=== PATIENT | male | born 1950 | race Caucasian/White ===

== ENCOUNTER 2019-10-09 15:15 | Emergency (ER) | payer MEDICARE ==
[2019-10-09 15:49] LABS: ABSOLUTE NEUTROPHIL COUNT 1.64; BASO % 0.9 % (0-6); EOS % 3.4 % (0-6); GRAN % 51.5 % (47-80); HEMATOCRIT 44.9 % (42.0-52.0); HEMOGLOBIN 14.7 gm/dl (14.0-18.0); MEAN CELL VOLUME 94.3 fl (81-97); MEAN CORPUSCULAR HEMOGLOBIN 30.9 pg (27-33); MEAN CORPUSCULAR HGB CONC 32.7 g/dl (32-36); MEAN PLATELET VOLUME 9.8 fl (7.4-10.4); MONO % 13.2 % (0-9); PLATELET COUNT 156 K/uL (130-400); RED BLOOD COUNT 4.76 M/uL (4.40-5.70); RED CELL DISTRIBUTION WIDTH 13.2 % (11.5-14.5); WHITE BLOOD COUNT W/O DIFF 3.2 K/uL (4.2-12.2)
--- NOTE | 2019-10-09 15:49 | Emergency Department Record ---
History of Present Illness - General Chief Complaint: Chest Pain Stated Complaint: LT ARM ACHY,CHEST PRESSURE Time Seen by Provider: 10/09/19 15:33 Source: Patient Mode of Arrival: Ambulatory Limitations: No limitations - History of Present Illness Initial Comments: The patient is here due to a worsening hx of progressively worsening Cp and JARRELL with arm aching with exertion. The symptoms have been worse for the last 2 days. Presently he denies any CP, SOB, MARK or sweating. 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 He does have cardiac risk factors of HTN and obesity. The patient also did take a full dose ASA today. MD Complaint: Chest pain Onset/Timin -: Month(s) Pain Location: Substernal Severity: Mild, Moderate Severity scale (1-10): 1 Quality: Aching, Heaviness Consistency: Constant, Intermittent - Related Data Home Medications Medication Instructions Recorded Confirmed Last Taken Allopurinol 100 mg PO DAILY 10/09/19 10/09/19 1 Day Ago ~10/08/19 Allergies Allergy/AdvReac Type Severity Reaction Status Date / Time bupropion HCl Allergy RAPID Verified 10/09/19 15:35 [From Wellbutrin] HEART RATE fentanyl Allergy VOMITING Verified 10/09/19 15:35 hydrocodone bitartrate Allergy NAUSEA Verified 10/09/19 15:35 [From Vicodin] oxycodone HCl [From Percodan] Allergy NAUSEA Verified 10/09/19 15:35 oxycodone terephthalate Allergy NAUSEA Verified 10/09/19 15:35 [From Percodan] propoxyphene napsylate Allergy NAUSEA Verified 10/09/19 15:35 [From Darvocet-N] Travel Screening - Travel/Exposure Within Last 30 Days Have you traveled within the last 30 days?: No - Travel/Exposure Within Last Year Have you traveled outside the [place] in the last year?: No - Additonal Travel Details Have you been exposed to anyone with a communicable illness?: No - Travel Symptoms Symptom Screening: None Review of Systems Constitutional: Denies: Chills, Fever Eyes: Denies: Eye discharge ENT: Denies: Congestion Respiratory: Reports: Dyspnea. Denies: Cough Cardiovascular: Reports: Chest pain, Dyspnea on exertion Endocrine: Reports: Fatigue Gastrointestinal: Denies: Nausea Genitourinary: Denies: Dysuria Musculoskeletal: Denies: Arthralgia Skin: Denies: Bruising Past Medical History - SOCIAL HISTORY Smoking Status: Never smoker Alcohol Use: None Drug Use: None - RESPIRATORY Hx Respiratory Disorders: Yes Hx Asthma: Yes Hx Sleep Apnea: Yes - CARDIOVASCULAR Hx Cardio Disorders: Yes Comment:: Left fascicular Block - NEURO Hx Neuro Disorders: Yes Comment:: Neuropathy of feet - GI Hx GI Disorders: No - Hx Genitourinary Disorders: No - ENDOCRINE Hx Endocrine Disorders: No - MUSCULOSKELETAL Hx Musculoskeletal Disorders: Yes Hx Arthritis: Yes Comment:: DJD - PSYCH Hx Psych Problems: Yes Comment:: ADD - HEMATOLOGY/ONCOLOGY Hx Hematology/Oncology Disorders: No Family Medical History Any Significant Family History?: Yes Hx Cancer: Father, Mother, Brother/Sister Hx Heart Disease: Father Physical Exam - General General Appearance: Alert, Oriented x3, Cooperative, No acute distress - Head Head exam: Atraumatic, Normocephalic, Normal inspection - Eye Eye exam: Normal appearance, PERRL, EOMI - ENT Throat exam: Normal inspection. negative: Tonsillar erythema, Tonsillar exudate - Neck Neck exam: Normal inspection, Full ROM. negative: Tenderness - Respiratory Respiratory exam: Normal lung sounds bilaterally. negative: Respiratory distress - Cardiovascular Cardiovascular Exam: Regular rate, Normal rhythm, Normal heart sounds - GI/Abdominal GI/Abdominal exam: Soft, Normal bowel sounds. negative: Rebound, Rigid, Tenderness - Extremities Extremities exam: Normal inspection, Full ROM, Normal capillary refill. negative: Tenderness - Back Back exam: Reports: Normal inspection - Neurological Neurological exam: Alert, Normal gait, Oriented X3. negative: Abnormal gait, Altered, Motor sensory deficit - Psychiatric Psychiatric exam: negative: Anxious Course Vital Signs 10/09/19 15:26 Temperature 97.6 F Pulse Rate 74 Respiratory 18 Rate Blood Pressure 169/96 Pulse Ox 97 - Reevaluation(s) Reevaluation #1: The patient is resting comfortably at this time. He denies any CP or SOB or discomfort. I did discuss the positive findings on the EKG and cardiac enzymes and did recommend transfer to Cardiology. The patient would like to go to [facility] [place]. 10/09/19 16:12 Reevaluation #2: The patient remains pain free and is resting comfortably on the Heparin drip. I did discuss the case with Dr. Solomon from [facility] and he did accept the patient as a direct admit to [facility]. 10/09/19 16:22 Medical Decision Making - Data Complexity MDM Data: EKG Ordered and/or Reviewed - Lab Data Result diagrams: 10/09/19 15:40 10/09/19 15:40 - EKG Data -: EKG Interpreted by Me EKG: Abnormal EKG (Anterolateral TX, age ?. Neg for acute.) Disposition Disposition: Transfer Clinical Impression: Myocardial infarct, old Disposition: Acute Care Hospital Transfer Transfer To: [facility] Reason For Transfer: Cardiology Accepting Physician: Dr. Solomon Time Discussed w/Accepting Physician: 16:23 Condition: (2) Stable Forms: Patient Portal Access Time of Disposition: 16:23 Quality - Quality Measures Quality Measures: N/A - Blood Pressure Screening View Details: Yes Does Patient Have Any of the Following: Active Dx of HTN Blood Pressure Classification: Hypertensive Reading Systolic Measurement: 169 Diastolic Measurement: 96 Screening for High Blood Pressure: Patient Exclusion, Hx of HTN [[id number]]
[2019-10-09 15:58] LABS: BLOOD UREA NITROGEN 18 mg/dL (8-23)
[2019-10-09 15:59] LABS: CREATININE 1.1 mg/dL (0.7-1.2); EST GLOMERULAR FILTRATION RATE > 60 mL/min; TOTAL PROTEIN 7.1 g/dL (6.6-8.7)
[2019-10-09 16:01] LABS: GLUCOSE,RANDOM 118 mg/dL (74-109)
[2019-10-09 16:02] LABS: PARTIAL THROMBOPLASTIN TIME 26.2 SECONDS (24.5-39.1); PROTHROMBIN TIME (PATIENT) 10.6 SECONDS (9.5-12.1)
[2019-10-09 16:04] LABS: ALB/GLOB RATIO 1.6 (1.1-1.8); ALBUMIN 4.4 g/dL (4.0-5.0); ALKALINE PHOSPHATASE 81 U/L (40-129); ALT/SGPT 116 U/L (<41); AST/SGOT 58 U/L (10.0-50.0); CREATINE PHOSPHOKINASE 502 U/L (39-308)
[2019-10-09] MEDS ORDERED: HEPARIN SODIUM 1000 UNIT/1 ML 10ML VIAL IVP ONE ×2 (16:09→16:14)
[2019-10-09] MEDS ORDERED: HEPARIN SODIUM/D5W 25,000 UNITS/500 ML BAG IV SCH (16:15)
[2019-10-09 16:29] LABS: CKMB RELATIVE INDEX 3.78 % (0-4)
--- NOTE | 2019-10-09 16:43 | RADIOLOGY REPORT ---
EXAMINATION: Portable chest, 1 view EXAM DATE: 10/09/2019 4:14 PM INDICATION: MARK X 2 WKS. FINDINGS: The heart is not enlarged. The lungs and pleural surfaces are clear. Impression: Normal chest. Dictated by: Alberto Muller MD on 10/09/2019 4:41 PM. .
== END 2019-10-09 17:01 | disposition short-term general hospital (02) ==
LOC: ER 15:15
DX: R07.89 Other chest pain (principal); R06.00 Dyspnea, unspecified; R79.89 Other specified abnormal findings of blood chemistry; I25.2 Old myocardial infarction; I10 Essential (primary) hypertension
CPT/HCPCS: 71045; 80053; 82550; 82553; 84484; 85025; 85610; 85730; 93005; 93010; 96365; 96375; 99285